=== PATIENT | female | born 1965 | race American Indian/Alaskan Native ===

== ENCOUNTER 2016-05-16 09:24 | Outpatient (CLI) | payer MEDICARE ==
--- NOTE | 2016-05-16 10:44 | Ultrasound Report ---
ULTRASOUND RENAL INDICATION: Acute renal failure. COMPARISON: None similar. FINDINGS: Renal sonography suggests normal renal cortical echogenicity, to the extent assessed. Grossly preserved renal contours. No hydronephrosis. Echogenic imaged liver. RIGHT KIDNEY measures 11.5 x 4.5 x 5 cm with cortical thickness of 1.8 cm. LEFT KIDNEY estimated at 10.2 x 5.3 x 6.5 cm with cortical thickness of 2.3 cm. URINARY BLADDER empty following voiding and suboptimally assessed. CONCLUSION: No acute renal sonographic abnormality with few other incidental findings, as described. Thank you for the opportunity to participate in this patient's care.
== END 2016-05-16 09:25 | disposition home or self-care (01) ==
LOC: US 09:24
PROVIDERS: ATTEND Internal Medicine
DX: N19 Unspecified kidney failure (principal)
CPT/HCPCS: 76770

== ENCOUNTER 2017-04-28 16:54 | Emergency (ER) | payer MEDICARE ==
[2017-04-28 17:07] VITALS: BP 114/58
[2017-04-28] MEDS ORDERED: PERCOCET 5/325 PO ONE (18:04)
--- NOTE | 2017-04-28 18:04 | Emergency Department Report ---
ED Back Pain/Injury HPI - General Chief Complaint: Back Pain/Injury Stated Complaint: LOWER BACK PAIN Time Seen by Provider: 04/28/17 17:50 Source: patient, EMS Limitations: No Limitations - History of Present Illness Initial Comments: Patient is a chronic back pain patient who has been out of her Percocet for possibly 6 days. 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 She hasn't appointment in 3 days to see a new pain management doctor MD Complaint: back pain -: Gradual ( lupus patient has chronic low back pain ) Radiation: none Severity scale (0 -10): 8 Quality: burning, aching Consistency: constant Improves With: none Worsens With: movement - Related Data Home Medications Medication Instructions Recorded Confirmed Last Taken Gabapentin [Neurontin] 900 mg PO TID 04/28/17 04/28/17 Unknown Ipratropium/Albuterol Sulfate 2 inhalation PO DAILY 04/28/17 04/28/17 Unknown [Combivent Respimat] Lisinopril/Hydrochlorothiazide 10 mg PO DAILY 04/28/17 04/28/17 Unknown oxyCODONE /ACETAMINOPHEN [Percocet 10 mg PO BID 04/28/17 04/28/17 Unknown 5/325 mg] traMADol [Ultram 50 MG tab] 50 mg PO BID 04/28/17 04/28/17 Unknown Previous Rx's Medication Instructions Recorded Last Taken Type Ketorolac [Toradol] 10 mg PO Q6H PRN #15 tablet 04/28/17 Unknown Rx Allergies Allergy/AdvReac Type Severity Reaction Status Date / Time adhesive tape Allergy Rash Verified 04/28/17 17:07 latex Allergy Rash Verified 04/28/17 17:07 ED Review of Systems ROS: Stated complaint: LOWER BACK PAIN Other details as noted in HPI Comment: All other systems reviewed and negative ED Past Medical Hx - Past Medical History carpal tunnel syndrome,bilateral knee pain,Cervical Spondylosis,chronic back pain,Foraminal stenosis of C-S,Morbid Obesity/////Systemic Lupus erythematosus ED Back Pain Physical Exam - Exam General: Vital signs noted. No distress. Alert and acting appropriately. Back/Abdomen: Yes Perilumbar Tenderness, No Abdominal Tenderness, No Perithoracic Tenderness, No Sacroiliac Tenderness, No Flank Tenderness, No Straight Leg Raise Pain Neuro: Yes Normal Sensation, Yes Normal DTR's, Yes Normal Gait, No Motor Weakness ED Course Vital Signs 04/28/17 17:00 Temperature 97.9 F Pulse Rate 74 Respiratory 16 Rate Blood Pressure 114/58 O2 Sat by Pulse 97 Oximetry Critical care attestation.: If time is entered above; I have spent that time in minutes in the direct care of this critically ill patient, excluding procedure time. ED Disposition Clinical Impression: Chronic back pain Qualifiers: Back pain location: low back pain Back pain laterality: bilateral Sciatica presence: without sciatica Qualified Code(s): M54.5 - Low back pain; G89.29 - Other chronic pain; G89.29 - Other chronic pain Disposition: - TO HOME OR SELFCARE Is pt being admited?: No Does the pt Need Aspirin: No Condition: Stable Prescriptions: Ketorolac [Toradol] 10 mg PO Q6H PRN #15 tablet PRN Reason: Pain
== END 2017-04-28 18:27 | disposition home or self-care (01) ==
LOC: ED 16:54
DX: M54.5 Low back pain (principal); G89.29 Other chronic pain